=== PATIENT | male | born 1985 | race Caucasian/White ===

== ENCOUNTER 2016-12-15 13:18 | Emergency (ER) | payer BC, OTHER ==
[2016-12-15 14:02] VITALS: BP 124/88
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
[2016-12-15] MEDS ORDERED: NORCO 5/325 PO ONE (15:13)
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
== END 2016-12-15 17:02 | disposition home or self-care (01) ==
LOC: ED 13:18
DX: R07.89 Other chest pain (principal); M25.511 Pain in right shoulder; V89.2XXA Person injured in unspecified motor-vehicle accident, traffic, initial encounter; W22.10XA Striking against or struck by unspecified automobile airbag, initial encounter; Y93.89 Activity, other specified; Y99.8 Other external cause status; Y92.89 Other specified places as the place of occurrence of the external cause
CPT/HCPCS: 71020; 99283